=== PATIENT | female | born 1995 | race African-American/Black ===

== ENCOUNTER 2016-11-09 14:21 | Emergency (ER) | payer OTHER ==
[~2016-11-09] VITALS: Ht 162.6 cm; Wt 59.0 kg
[2016-11-09 14:45] VITALS: BP 110/67
[2016-11-09] MEDS ORDERED: MORPHINE SULFATE 10 MG/ML VIAL. IM ONE (15:15)
[2016-11-09 16:25] LABS: BASO # 0.1 x10^3/uL (0.0-0.2); BASO % 1 % (0-3); EOS % 0 % (0-3); HEMATOCRIT 31.4 % (36.0-47.0); HEMOGLOBIN 10.5 g/dL (12.0-15.5); LYMPH # 0.7 x10^3/uL (1.0-4.8); LYMPH % 8 % (24-48); MEAN CORPUSCULAR HEMOGLOBIN 31 pg (25-35); MEAN CORPUSCULAR HGB CONC 34 g/dL (31-37); MEAN CORPUSCULAR VOLUME 92 fL (79-100); MONO % 11 % (0-9); NEUT % 80 % (31-73); PLATELET COUNT 122 x10^3/uL (140-400); RED BLOOD COUNT 3.42 x10^6/uL (3.50-5.40); RED CELL DISTRIBUTION WIDTH 16.4 % (11.5-14.5); WHITE BLOOD COUNT 8.6 x10^3/uL (4.0-11.0)
[2016-11-09] MEDS ORDERED: OXYC-323 PO (16:46)
--- NOTE | 2016-11-09 16:46 | PHYS DOC ---
Past Medical History Past Medical History: Sickle Cell Disease Past Surgical History: Tonsillectomy, Other Additional Past Surgical Histo: ADENOIDS Additional Information: Nonsmoker Alcohol Use: None Drug Use: None Adult General Chief Complaint Chief Complaint: PAIN CONTROL HPI HPI Patient is a 20 year old female with history of sickle cell disease who presents with atraumatic left leg pain starting yesterday. She also reports some difficulty breathing. She denies any cough or fevers. She states that her symptoms are consistent with a sickle cell crisis. She normally takes oxycodone 30 mg at home for her pain related to her sickle cell disease. She only has 2 pills left and states this is not helping her pain. Her PCP is Dr. Lawrence. Review of Systems Review of Systems Constitutional: Denies fever or chills. [] Eyes: Denies change in visual acuity, redness, or eye pain. [] HENT: Denies ear pain, nasal congestion or sore throat. [] Respiratory: Denies cough. Reports shortness of breath. Cardiovascular: Denies chest pain, palpitations or edema. [] GI: Denies abdominal pain, nausea, vomiting, bloody stools or diarrhea. [] : Denies dysuria, hematuria or urinary frequency. [] Musculoskeletal: Denies back pain or joint pain. Reports left thigh pain. Integument: Denies rash or skin lesions. [] Neurologic: Denies headache, focal weakness or sensory changes. [] Endocrine: Denies polyuria or polydipsia. [] Psych: Denies anxiety or depression. [] All systems reviewed and negative unless otherwise stated in the HPI. Current Medications Current Medications Current Medications Medications (Trade) Dose Ordered Sig/[facility] Start Time Stop Time Status Last Admin Dose Admin Morphine Sulfate 5 mg 1X ONCE 11/09/16 15:15 11/09/16 15:17 DC 11/09/16 15:41 5 MG Allergies Allergies Allergies Coded Allergies Type Severity Reaction Last Updated Verified No Known Drug Allergies 11/09/16 No Physical Exam Physical Exam Constitutional: Well developed, well nourished, no acute distress, non-toxic appearance. [] HENT: Normocephalic, atraumatic, bilateral external ears normal, oropharynx moist, no oral exudates, nose normal. [] Eyes: PERRLA, EOMI, conjunctiva normal, no discharge. [] Neck: Normal range of motion, no tenderness, supple, no stridor. [] Cardiovascular: Heart rate regular rhythm, no murmur [] Lungs & Thorax: Bilateral breath sounds clear to auscultation without wheezes, rales, or rhonchi. Skin: Warm, dry, no erythema, no rash. [] Extremities: Diffuse left thigh tenderness, no cyanosis, no clubbing, ROM intact , no edema. 2+ DP pulses bilaterally. Neurologic: Alert and oriented X 3, normal motor function, normal sensory function, no focal deficits noted. Patient walks with a normal steady gait without assistance. Psychologic: Affect normal, judgement normal, mood normal. [] Current Patient Data Vital Signs Vital Signs Date Time Temp Pulse Resp B/P Pulse Ox O2 Delivery O2 Flow Rate FiO2 11/09/16 14:45 98.6 93 18 100 Room Air 98.6 Lab Values Laboratory Tests Test 11/09/16 16:05 White Blood Count 8.6x10^3/uL (4.0-11.0) Red Blood Count 3.42x10^6/uL (3.50-5.40) L Hemoglobin 10.5g/dL (12.0-15.5) L Hematocrit 31.4% (36.0-47.0) L Mean Corpuscular Volume 92fL (79-100) Mean Corpuscular Hemoglobin 31pg (25-35) Mean Corpuscular Hemoglobin Concent 34g/dL (31-37) Red Cell Distribution Width 16.4% (11.5-14.5) H Platelet Count 122x10^3/uL (140-400) L Neutrophils (%) (Auto) 80% (31-73) H Lymphocytes (%) (Auto) 8% (24-48) L Monocytes (%) (Auto) 11% (0-9) H Eosinophils (%) (Auto) 0% (0-3) Basophils (%) (Auto) 1% (0-3) Neutrophils # (Auto) 6.8x10^3uL (1.8-7.7) Lymphocytes # (Auto) 0.7x10^3/uL (1.0-4.8) L Monocytes # (Auto) 0.9x10^3/uL (0.0-1.1) Eosinophils # (Auto) 0.0x10^3/uL (0.0-0.7) Basophils # (Auto) 0.1x10^3/uL (0.0-0.2) Laboratory Tests 11/09/16 16:05 EKG EKG [] Radiology/Procedures Radiology/Procedures [] Course & Med Decision Making Course & Med Decision Making Pertinent Labs and Imaging studies reviewed. (See chart for details) ED course: Patient with history of sickle cell disease presents with left leg pain and shortness of breath, as manifestations of a sickle cell crisis. Upon arrival to the emergency department, her vital signs are stable. On examination , lungs are clear without respiratory distress and there are no external signs of trauma or infection of the left leg. The patient is ambulatory without difficulty. Her hemoglobin is stable at 10.5. She was given IM morphine for her pain in the emergency department. She is discharged home with prescription for Percocet. She is instructed to follow-up with her PCP for refill of her pain medication. Return precautions were discussed. She verbalizes understanding and agrees with plan. Dragon Disclaimer Dragon Disclaimer This electronic medical record was generated, in whole or in part, using a voice recognition dictation system. Departure Departure Impression: Primary Impression: Sickle-cell disease with pain Disposition: 01 HOME, SELF-CARE Condition: IMPROVED Referrals: UNKNOWN PCP NAME (PCP) Patient Instructions: Sickle Cell Pain Crisis, [id number] Additional Instructions: Your vital signs and lab results today were stable. Please take the prescribed pain medication as directed. Do not drive or operate heavy machinery while taking pain medication. Please follow-up with your primary care doctor for refill of your pain medication. Return to emergency department if you have any new or concerning symptoms. Scripts Oxycodone/Apap 5-325 (Percocet 5-325 Mg Tablet)1 Each Tablet1 Tab PO PRN Q6HRS PRN PAIN #20 TAB Prov:VERONIQUE BENITES 11/09/16 VERONIQUE BENITES Nov 09, 2016 16:46
== END 2016-11-09 16:52 | disposition home or self-care (01) ==
LOC: ER 14:21
DX: D57.00 Hb-SS disease with crisis, unspecified (principal); M79.605 Pain in left leg; R06.00 Dyspnea, unspecified
CPT/HCPCS: 36415; 85027; 96372; 99283; J2270

== ENCOUNTER 2019-05-16 19:04 | Emergency (ER) | payer MEDICAID, OTHER ==
[~2019-05-16] VITALS: Ht 160 cm; Wt 59.0 kg
[~2019-05-16 19:04] MED LIST: OXYC1TAB15 PO
[2019-05-16] MEDS ORDERED: NALOXONE 0.4 MG/ML VIAL. ONE (19:12)
[2019-05-16] MEDS ORDERED: IV NORMAL SALINE 1000ML BAG 1,000 ML IV ONE ×2 (19:15)
[2019-05-16 19:43] VITALS: BP 110/61
--- NOTE | 2019-05-16 21:40 | PHYS DOC ---
Past Medical History Past Medical History: Sickle Cell Disease (JAZZMINE ESCOTO APRN) Past Surgical History: Tonsillectomy Additional Past Surgical Histo: ADENOIDS (JAZZMINE ESCOTO APRN) Alcohol Use: None Additional Information: UNKNOWN; PT POOR HISTORIAN Drug Use: None (JAZZMINE ESCOTO APRN) Adult General Chief Complaint Chief Complaint: ALTERED MENTAL STATUS HPI HPI Patient is a 23 year old female with history of sickle cell who presents to the ED today to be evaluated for unresponsiveness. Patient was dropped off by family, she was removed from the vehicle and noted to be unresponsive but with a pulse. Family did not wait for her to be evaluated. They left as soon as patient was removed from the vehicle. (JAZZMINE ESCOTO APRN) Review of Systems Review of Systems Constitutional: unresponsive Eyes: RENÉ HENT: RENÉ Respiratory: RENÉ Cardiovascular: RENÉ GI: RENÉ : RENÉ Musculoskeletal: RENÉ Integument: RENÉ Neurologic: unresponsive All other systems were reviewed and found to be within normal limits, except as documented in this note. (JAZZMINE ESCOTO APRN) Current Medications Current Medications Current Medications Medications (Trade) Dose Ordered Sig/[facility] Start Time Stop Time Status Last Admin Dose Admin Naloxone HCl (Narcan) 0.4 mg STK-MED ONCE 05/16/19 19:12 05/16/19 19:12 DC Sodium Chloride 1,000 ml @ 1,000 mls/hr 1X ONCE 05/16/19 19:15 05/16/19 20:14 DC (LUCILLE DONATO DO) Allergies Allergies Allergies Coded Allergies Type Severity Reaction Last Updated Verified No Known Drug Allergies 11/09/16 No (LUCILLE DONATO DO) Physical Exam Physical Exam Constitutional: Well developed, well nourished, unresponsive HENT: Normocephalic, atraumatic, bilateral external ears normal, oropharynx moist, no oral exudates, nose normal. [] Eyes: Bilateral pupils are equal in size but not reactive and responsive to light. conjunctiva normal, no discharge. [] Neck: Normal range of motion, no tenderness, supple, no stridor. [] Cardiovascular:Heart rate regular rhythm, no murmur [] Lungs & Thorax: Bilateral breath sounds clear to auscultation [] Abdomen: Bowel sounds normal, soft, no tenderness, no masses, no pulsatile masses. [] Skin: Warm, dry, no erythema, no rash. [] Back: No tenderness, Extremities: ROM intact, no edema. [] Neurologic:responsive to pain stimulus only, (JAZZMINE ESCOTO APRN) Current Patient Data Vital Signs Vital Signs Date Time Temp Pulse Resp B/P (MAP) Pulse Ox O2 Delivery O2 Flow Rate FiO2 05/16/19 19:43 104 20 96 05/16/19 19:21 97.6 139/83 (101) Room Air 97.6 (LUCILLE DONATO DO) EKG EKG [address] Donato sinus tachycardia, HR 118 no STEMI[] (JAZZMINE ESCOTO APRN) Radiology/Procedures Radiology/Procedures [] (JAZZMINE ESCOTO APRN) Course & Med Decision Making Course & Med Decision Making Pertinent Labs and Imaging studies reviewed. (See chart for details) This is a 23-year-old female patient who presents to the ED unresponsive, patient was removed from the vehicle by ED staff. She has history of sickle cell. Family who dropped patient off left without giving us any information. Patient was only responsive to pain stimulus. Patient was given 0.4 mg of Narcan. She woke up She demanded to be discharged AMA. I did evaluate patient myself. Talked to patient about the side effects of Narcan wearing off. Patient called her mother and they left together. (JAZZMINE ESCOTO APRN) Dragon Disclaimer Dragon Disclaimer This electronic medical record was generated, in whole or in part, using a voice recognition dictation system. (JAZZMINE ESCOTO APRN) Departure Departure Impression: Primary Impression: Drug overdose Disposition: 07 AGAINST MEDICAL ADVICE Condition: STABLE Referrals: UNKNOWN PCP NAME (PCP) Attending Signature Attending Signature I have reviewed the PA/SALES OPERATIONS ASSISTANT's note and plan of care. I was available for consultation as needed during the patient's visit in the emergency department. I agree with the clinical impression, plan, and disposition. (LUCILLE DONATO DO) Problem Qualifiers Primary Impression: Drug overdose Encounter type: initial encounter Injury intent: undetermined intent Qualified Codes: T50.904A - Poisoning by unspecified drugs, medicaments and biological substances, undetermined, initial encounter JAZZMINE ESCOTO APRN May 16, 2019 21:40 LUCILLE DONATO DO May 17, 2019 18:20
--- NOTE | 2019-05-17 07:30 | EKG ---
[facility] [address] [place] [address] Test Date: 2019-05-16 Test Time: 19:12:26 Pat Name: DELON UGARTE Department: Room: Gender: F [employer]: : [id number] Requested By: JAZZMINE ESCOTO Order Number: [id number] Reading MD: Measurements Intervals [place] Rate: 118 P: 142 OH: 146 QRS: 133 QRSD: 78 T: 156 QT: 328 QTc: 461 Interpretive Statements SINUS TACHYCARDIA * POSSIBLE REVERSAL OF THE ARM LEADS ABNORMAL RIGHT AXIS DEVIATION QRS(T) CONTOUR ABNORMALITY CONSISTENT WITH HIGH LATERAL MYOCARDIAL DAMAGE ABNORMAL ECG No previous ECG available for comparison
== END 2019-05-16 19:46 | disposition left against medical advice (07) ==
LOC: ER 19:04
DX: T50.904A Poisoning by unspecified drugs, medicaments and biological substances, undetermined, initial encounter (principal); Z90.89 Acquired absence of other organs; Y92.89 Other specified places as the place of occurrence of the external cause
CPT/HCPCS: 93005; 99283